=== PATIENT | female | born 1940 | race Caucasian/White ===

== ENCOUNTER → 2016-12-29 | Outpatient (CLI) | payer MEDICARE, MEDICAID ==
[~2016-12-29] MED LIST: ALLEGRA30 MG PO; ATROVENT INH; 114 GM INH; BENICAR20 MG PO; CLEOCIN HCL300 MG PO; DOXYCYCLINE100 M1 PO; FLECAINIDE ACE100 MG PO; GLUCOVANCE 2.51 TAB PO; LANOXIN 0.25M0.25 MG PO; LANOXIN0.25 MG PO; LEVOTHYROXIN0.075 MG PO; LISINOPRIL 10MG10 MG PO; MEDROL 4MG. DOSE4 MG PO; MUCINEX ER600 MG PO; NORCO 325 MG-51 TAB PO; NORCO1 TAB PO; OXYGEN; PREDNISONE 20MG20 MG PO; PRILOSEC20 MG PO; SALMETEROL-F28 PUFF1 INH; VIBRAMYCIN50 MG/5 ML PO; WALK5 XX; XANAX 0.5MG TA0.5 MG PO; ZITHROMAX Z-PA250 M2 PO; [UNRECOGNIZED DRUG - OTHER] PO
[2016-12-29 13:45] LABS: HEMOGLOBIN 12.3 g/dL (12.2-16.2); LYMPH # 1.9 K/mm3 (0.7-4.5); LYMPH % 20.2 % (10-50.0)
[2016-12-29 14:50] LABS: BUN 12 mg/dL (7-18); GFR (ESTIMATED) 40 ML/MIN (59-)
== END ==
LOC: LAB 12:33
PROVIDERS: Internal Medicine
DX: I50.9 Heart failure, unspecified (principal); J44.9 Chronic obstructive pulmonary disease, unspecified; I48.0 Paroxysmal atrial fibrillation; I42.8 Other cardiomyopathies

== ENCOUNTER 2017-03-03 22:24 | Observation (INO) | payer OTHER, MEDICARE, MEDICAID ==
[~2017-03-03] VITALS: Ht 182.9 cm; Wt 112.5 kg
[~2017-03-03 22:24] MED LIST changes: +ALLEGRA ALLERGY60 MG PO; -ALLEGRA30 MG PO; +PRILOSEC20 M1 PO; -PRILOSEC20 MG PO
[2017-03-03 22:28] VITALS: BP 145/104
[2017-03-03] MEDS ORDERED: BISOPROLOL FUMA10 MG PO (22:38)
--- OUTSIDE RECORDS SUMMARY | 2017-03-03 22:44 | External Medical Summary Rpt | CCD ---
Author Author , ANGELINA ALFARO Address Unknown Phone [email or web address] Purpose Continuity of Care Document - 06-23-2016 through 2016 Problems Code Diagnosis DOS Provider Status 244.9 787.21 I48.0 PAROXYSMAL ATRIAL FIBRILLATIO N J44.1 CHRONIC OBSTRUCTIVE PULMONARY DISEASE W (ACUTE) EXACERBATIO N R06.02 SHORTNESS OF BREATH Z79.899 OTHER DETENTION (CURRENT) DRUG THERAPY Medications Na ND Rx Da Fi Fi Am Da Di Ph RX Ph St me C No te ll ll ou ys ag ar # ys at rm s nt no ma ic us Or Da si cy ia de te s n re d KE 17 01 02 5. 25 00 KR Ac TO 47 -1 -1 00 00 OG ti TI 80 2- 0- 0 06 ER ve FE 71 20 20 58 N 71 17 17 71 PH FU 0 87 AR M MA 0. CY 02 5% #[address] BETANCOURT S
--- OUTSIDE RECORDS SUMMARY | 2017-03-03 22:44 | External Medical Summary Rpt | CCD ---
Author Author , ANGELINA ALFARO Address Unknown Phone [email or web address] Purpose Continuity of Care Document - 06-23-2016 through 2016 Problems Code Diagnosis DOS Provider Status 244.9 787.21 I48.0 PAROXYSMAL ATRIAL FIBRILLATIO N J44.1 CHRONIC OBSTRUCTIVE PULMONARY DISEASE W (ACUTE) EXACERBATIO N R06.02 SHORTNESS OF BREATH Z79.899 OTHER HALFWAY (CURRENT) DRUG THERAPY Medications Na ND Rx [...]
--- OUTSIDE RECORDS SUMMARY | 2017-03-03 22:45 | External Medical Summary Rpt | CCD ---
Author Author , ANGELINA ALFARO Address Unknown Phone [email or web address] Purpose Continuity of Care Document - 06-23-2016 through 2016 Medications Na ND Rx Da Fi Fi [...]
--- OUTSIDE RECORDS SUMMARY | 2017-03-03 22:45 | External Medical Summary Rpt | CCD ---
Author Author , ANGELINA ALFARO Address Unknown Phone [email or web address] Purpose Continuity of Care Document - 06-23-2016 [...]
--- OUTSIDE RECORDS SUMMARY | 2017-03-03 22:45 | External Medical Summary Rpt | CCD ---
Demographics Preferred Language German Marital Status Unknown Mandaeism Affiliation Unknown Race Unknown Ethnic Group Unknown Author Author , ANGELINA ALFARO Address Unknown Phone Immunization Unable to retrieve immunization data due to connection failure with Immunization Registry. Please try again later.
--- OUTSIDE RECORDS SUMMARY | 2017-03-03 22:45 | External Medical Summary Rpt | CCD ---
Demographics Preferred Language Greek Marital Status Unknown Restorationist Affiliation Unknown Race Unknown Ethnic Group Unknown Author Author , ANGELINA ALFARO Address Unknown Phone Immunization Unable to retrieve immunization data due to connection failure with Immunization Registry. Please try again later.
--- OUTSIDE RECORDS SUMMARY | 2017-03-03 22:46 | External Medical Summary Rpt ---
Author Author ANGELINA Ahumada, [employer] Organization [employer] Address Unknown Phone Unavailable Results Basic metabolic panel in Blood Observa Value Referen Units Interpr Notes Date tion ce etation Range Urea 7 - 18 mg/dL Normal No Dec 29 nitrogen informati 2016 [Mass/vol on in 12:35 PM ume] in source Serum or data Plasma Calcium 8.5 - mg/dL Normal No Dec 29 [Mass/vol 10.1 informati 2016 ume] in on in 12:35 PM Serum or source Plasma data Chloride 98 - 107 mmoL/L Normal No Dec 29 [Moles/vo informati 2016 lume] in on in 12:35 PM Serum or source Plasma data Carbon 21.0 - mmoL/L Normal No Dec 29 dioxide, 32.0 informati 2017 total on in 12:35 PM [Moles/vo source lume] in data Serum or Plasma Creatinin 0.55 - mg/dL High No Dec 29 e 1.02 informati 2016 [Mass/vol on in 12:35 PM ume] in source Serum or data Plasma Estimated 59- ML/MIN Low REFERENCE Dec 29 RANGE: 2017 glomerula >60 12:35 PM r ML/MIN/1. filtratio 73 SQUARE n rate METERSIf (GF this patient is -A merican, then multiply theresult by 1.210. Glucose 74 - 106 mg/dL High No Dec 29 [Mass/vol informati 2016 ume] in on in 12:35 PM Serum or source Plasma data Potassium 3.5 - 5.1 mmoL/L Normal No Dec 29 informati 2016 [Moles/vo on in 12:35 PM lume] in source Serum or data Plasma Sodium 136 - 145 mmoL/L Normal No Dec 29 [Moles/vo informati 2017 lume] in on in 12:35 PM Serum or source Plasma data Natriutietic peptide B [Mass/volume] in Serum or Plasma Observa Value Referen Units Interpr Notes Date tion ce etation Range Natriutie 0 - 100 pg/mL High No Dec 29 tic 2016 peptide B on in 12:35 PM source [Mass/vol data ume] in Serum or Plasma Thyroxine (T4) free [Mass/volume] in Serum or Plasma Observa Value Referen Units Interpr Notes Date tion ce etation Range Thyroxine 0.76 - ng/dL Normal No Dec 29 (T4) 1.46 2016 free on in 12:35 PM [Mass/vol source ume] in data Serum or Plasma Thyrotropin [Units/volume] in Serum or Plasma Observa Value Referen Units Interpr Notes Date tion ce etation Range Thyrotrop 0.358 - uIU/ml No No Dec 29 in 3.740 informati 2016 [Units/vo on in on in 12:35 PM lume] in source source Serum or data data Plasma CBC W Auto Differential panel in Blood Observa Value Referen Units Interpr Notes Date tion ce etation Range Basophils 0 - 0.2 K/MM3 Normal No Dec 292016 [#/volume on in 12:35 PM ] in source Blood by data Automated count Basophils 0.1 - 2.0 % Normal No Dec 29 /2016 leukocyte on in 12:35 PM s in source Blood by data Automated count Eosinophi 0.0 - 0.4 K/mm3 Normal No Dec 29 ls 2016 [#/volume on in 12:35 PM ] in source Blood by data Automated count Eosinophi 0.1 - % Normal No Dec 29 ls/100 12.0 2016 leukocyte on in 12:35 PM s in source Blood by data Automated count Granulocy 1.8 - 7.8 K/mm3 Normal No Dec 29 so 2016 [#/volume on in 12:35 PM ] in source Blood by data Automated count Granulocy 37.0 - % Normal No Dec 29 so/100 80.0 2016 leukocyte on in 12:35 PM s in source Blood by data Automated count Hematocri 37.0 - % Normal No Dec 29 t [Volume 47.0 2016 on in 12:35 PM Fraction] source of Blood data Hemoglobi 12.2 - g/dL Normal No Dec 29 n 16.2 2016 [Mass/vol on in 12:35 PM ume] in source Blood data Lymphocyt 0.7 - 4.5 K/mm3 Normal No Dec 29 es 2016 [#/volume on in 12:35 PM ] in source Unspecifi data ed specimen by Automated count Lymphocyt 10 - 50.0 % Normal No Dec 29 es 2016 [#/volume on in 12:35 PM ] in source Unspecifi data ed specimen by Automated count Erythrocy 27 - 31.2 pg Normal No Dec 29 te mean 2016 corpuscul on in 12:35 PM ar source hemoglobi data n [Entitic mass] Erythrocy 31.8 - g/dl Normal No Dec 29 te mean 35.4 inform2016 corpuscul on in 12:35 PM ar source hemoglobi data n concentra tion [Mass/vol ume] by Automated count Erythrocy 82.2 - fl Normal No Dec 29 te mean 97.8 inform2016 corpuscul on in 12:35 PM ar volume source [Entitic data volume] by Automated count Monocytes 0.1 - 1.0 K/mm3 Normal No Dec 292016 [#/volume on in 12:35 PM ] in source Blood by data Automated count Monocytes 1.7 - 9.3 % Normal No Dec 18 /100 inform 2017 leukocyte on in 12:35 PM s in source Blood by data Automated count Platelet 7.4 - fl Normal No Dec 29 mean 10.4 inform2016 volume on in 12:35 PM [Entitic source volume] data in Blood by Automated count Platelets 142 - 424 K/mm3 Normal No Dec 292016 [#/volume on in 12:35 PM ] in source Blood data Erythrocy 4.2 - 5.4 M/mm3 Normal No Dec 29 so inform2016 [#/volume on in 12:35 PM ] in source Amniotic data fluid Erythrocy 11.5 - % Normal No Dec 29 te 17.5 inform2016 distribut on in 12:35 PM ion width source [Entitic data volume] by Automated count Leukocyte 4.8 - K/MM3 Normal No Dec 29 s 10.8 2016 [#/volume on in 12:35 PM ] in source Blood data
--- NOTE | 2017-03-03 22:55 | Emergency Room Report ---
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 N Clinical Suspician of Infection? N Mental Status: 1 - Regular (Normal Baseline) Sepsis Risk:Possible Sepsis Risk Have you (or family members/close friends) recently traveled outside the [place]? N If Yes, where/when: Have you had exposure to infectious disease within the past month? N TB? Other? Specify: Source patient, RN notes reviewed, family, old records Exam Limitations no limitations Comment pt with progressive sob and no chest pain or syncope - she has prod cough with yellow sputum and has hx of copd- o2 dep and a fib with pacemaker - pt with progressive sx at home with no relief with home meds - no fever or rash and she has been compliant with meds Cardiac Chest Pain Chest pain indicative of cardiac No Timing/Duration this evening Severity moderate ALLERGIES Coded Allergies: atorvastatin (From Lipitor) (Mild, 09/07/15) cefixime (From Suprax) (Mild, I-RASH 09/07/15) cephalexin (From Keflex) (Mild, DIARRHEA 09/07/15) etodolac (Mild, 09/07/15) pantoprazole (Mild, NIGHTMARES 09/07/15) prednisone (Mild, SHORTNESS OF BREATH 09/07/15) Sulfa (Sulfonamide Antibiotics) (URINARY PROBLEMS 09/07/15) cefepime (09/07/15) diltiazem ("BOTHERED HEART" 09/07/15) isosorbide (09/07/15) morphine (03/03/17) rosuvastatin (UNK RXN 09/07/15) amoxicillin (Mild, DIARRHEA 09/07/15) clarithromycin (Mild, N/V/D 09/07/15) clavulanic acid (Mild, DIARRHEA 09/07/15) esomeprazole (From Nexium) (Mild, NIGHTMARES 09/07/15) gabapentin (Mild, URINARY PROBLEMS, SWELLING 09/07/15) levofloxacin (From Levaquin) (Mild, PAINFUL JOINTS 09/07/15) montelukast (From Singulair) (Mild, 09/07/15) naproxen (Mild, NVD 09/07/15) nitrofurantoin (From Macrobid) (Mild, SHAKES 09/07/15) lansoprazole (From Prevacid) (SHORT OF BREATH 09/07/15) Home Medications Active Scripts Device (Walker, Rolling (2-Wheel)) 1 UNIT XX UD #1 DEV Prov: 07/26/15 Reported Medications Salmeterol 50/Fluticasone 500 (Advair 500-50 Diskus) 1 PUFF INH BID Alprazolam (Xanax 0.5MG) 0.5 MG PO TID PRN NERVES FEXOFENADINE HCL (Tameka Allergy) 60 MG PO BID OMEPRAZOLE MAGNESIUM (Prilosec 20MG) 20 MG PO BID [OXYGEN] 2 PRN Bisoprolol Fumarate 10 MG PO DAILY #90 TAB Rivaroxaban (Xarelto) 15 MG PO DAILY POTASSIUM CHL (Potassium Chloride) 20 MEQ PO DAILY Furosemide (Lasix 40MG) 40 MG PO DAILY IPRATROPIUM/ALBUTEROL SULFATE (Iprat-Albut 0.5-3(2.5) MG/3 Ml) 3 ML IH QID VERAPAMIL HCL (Verapamil ER) 240 MG PO DAILY TRAMADOL HCL (Tramadol) 50 MG PO DAILY History Medical History General CAD? Yes Angina: No [place]: No Hypertension? Yes Hyperlipidemia? Yes CHF? No DVT? No PE? No COPD? Yes Asthma? Yes Anemia? No GERD? No Gastric ulcers? No GI Bleed? No Hernia? Yes Thyroid Problems? No Hypothyroidism? No CVA? No Seizures? No Diabetes? Yes Insulin Dependent: No Insulin Pump: No Home FSBS? No Renal Insuffiency? No End Stage Renal Disease? No UTI? Yes Stones? No BPH? No GB Disease: Yes Nephritic Syndrome? No Asplenia? No Hepatitis? No Sickle Cell Disease? No Arthritis? Yes Migraines? No Cataracts? No Glaucoma? No MRSA? No HIV? No TB? No Anxiety? Yes Depression? No Cancer? No More? No Immunization Hx DT/Tetanus Unknown Flu 2014-FSN Pneumonia Received In Past Surgical Hx Previous Surgery?Y GALLBLADDER TONSILLECTOMY Tubal Ligation GOITER L KNEE Family History Family Hx Diabetes No CAD Yes Hypertension Yes Hyperlipidemia Yes Cancer Yes TB No Social History Smoking Hx Smoker: Former Smoker Tobacco: No Type Cigarettes Packs/day N/A Alcohol Alcohol: No Drugs none Review of Systems All Other Systems Reviewed and Negative Constitutional see HPI, denies fever, weakness Eyes denies drainage, denies photophobia ENT denies: ear pain, epistaxis, throat pain. Respiratory cough, shortness of breath, denies wheezing Cardiovascular denies chest pain, denies syncope Gastrointestinal denies abdominal pain, denies diarrhea, denies vomiting Genitourinary denies: dysuria, frequency, hesitancy. Musculoskeletal denies back pain, denies joint pain, denies joint swelling, denies neck pain Skin denies rash Psychiatric/Neurological denies headache, denies seizure Physical Exam Vital Signs Vital Signs Date Time Temp Pulse Resp B/P Pulse O2 O2 Flow FiO2 Ox Delivery Rate 03/036 82 20 119/75 95 2 03/03 2301 93 03/038 98.4 108 28 145/104 93 2 - WBC >12,000 or <4,000 or 10% bands? 2 or more SIRS Criteria Met? B/P:119/75 MAP:117 Creatinine >2.0? UA output<0.5ml/kg/hr for 2 hrs? Platelet count >100,000? Lactate >2.0mmol/1? INR >1.2 or PTT > than 60 sec? Evidence of Organ Dysfunction? Provider documented clinical suspician of infection? N Sepsis Criteria Count: 2 Sepsis Risk: Possible Sepsis Risk General Appearance no apparent distress Eye Exam - bilateral eye PERRL, bilateral eye EOMI Ear, Nose, Throat normal ENT inspection Neck supple Respiratory Status No: respiratory distress. Lung Sounds bilateral: rhonchi. Cardiovascular regular rate/rhythm, systolic murmur Peripheral Pulses Pulses normal Yes Gastrointestinal soft Extremities normal inspection Strength 4 Upper Ext (L), 4 Upper Ext (R), 4 Lower Ext (L), 4 Lower Ext (R) Neurologic alert, model artists' II-XII nml as tested, no motor/sensory deficits Reflexes Reflexes normal No Mental status normal mood/affect Skin intact Medical Decision Making LABS/Meds/Orders Pt receiving controlled substance in ED? No Results/Orders Laboratory Tests 03/03/17 2300: TSH 1.65, Thyroxine (T4) 10.2 03/03/172299: Lactic Acid 3.2 H, Digoxin < 0.20 L 03/03/172249: WBC 12.8 H, RBC 4.41, Hgb 12.5, Hct 39.2, MCV 88.8, RDW 14.9, Plt Count 239, MPV 8.4, Gran % 75.2, Gran # 9.6 H, Lymphocytes % 19.0, Monocytes % 4.1, Eosinophils % 1.2, Basophils % 0.4, Lymphocytes # 2.4, Monocytes # 0.5, Eosinophils # 0.2, Basophils # 0.1, PUBS MCHC 31.9, MCH 28.3 03/03/172239: Sodium 140, Potassium 3.9, Chloride 104, Carbon Dioxide 24, BUN 14, Creatinine 1.5 H, Estimated Creat Clear 58, Estimated GFR (MDRD) 34 L, Glucose 173 H, Calcium 9.1, Total Bilirubin 0.3, AST 25, ALT 18, Alkaline Phosphatase 107, Creatine Kinase 123, CK-MB (CK-2) Rel Index 2.2, CK and CKMB Interp 2.7, Troponin I < 0.02, B-Natriuretic Peptide 79, Total Protein 7.4, Albumin 3.5, Globulin 3.9 H, Albumin/Globulin Ratio 0.9 L Current Medication Orders Sig/Dalia Start time Last Medication Dose Route Stop Time Status Admin Doxycycline Hyclate 100 MG ONCE ONE 03/03 2345 AC Sodium Chloride 250 ML IV 03/04 113 Methylprednisolone 125 MG ONCE ONE 03/03 2345 DCr Sodium Succinate IV 03/03 2346 Methylprednisolone 0 .STK-MED ONE 03/03 2345 DCr Sodium Succinate .ROUTE Albuterol 0 .STK-MED ONE 03/03 2302 DC INH Albuterol 2.5 MG ONCE ONE 03/03 2300 DC 03/03 INH 03/03 Sodium Chloride 10 ML PRN PRN 03/03 2245 AC IV 03/04 2240 Orders Procedure Date/time Status Decision to admit 03/03 2345 Active RT Aerosol Treatment, Provide 03/03 2322 Active CHEST-PORTABLE 03/03 2258 Active THYROID STIMULATING HORMONE 10/21 2257 Complete THYROXINE (T4) 03/03 2257 Complete DIGOXIN 03/03 2257 Complete RT REQUEST ALBUTEROL NEB 03/03 2256 Active CULTURE, SPUTUM 03/03 2256 Active ELECTROCARDIOGRAM REQUEST 03/03 2241 Active IV SALINE LOCK 03/03 2241 Active OXYGEN PER NURSE 03/03 2241 Active CULTURE, BLOOD 03/03 2241 Active LACTIC ACID 03/03 2241 Complete CBC WITH AUTO DIFF 03/03 2241 Complete CARDIAC ENZYMES 03/03 2241 Complete CHEM 12 PROFILE 03/03 2241 Complete BRAIN NATRIURETIC PEPTIDE 03/03 2241 Complete 12 LEAD EKG-BRIT (INITIAL) 03/03 UNK Active CM/EKG CM/arranging funeral director Rhythm Atrial Fibrillation EKG compared w/(date of old), non-spec. ST/Twave chgs XRAY/CT/US XRAY/CT/US XRAY chest XR interpretation by reviewed by me Xray Results abnormal (chronic changes) Departure Departure Time of Disposition 234 Disposition Still a Patient Clinical Impression Primary Impression: COPD (chronic obstructive pulmonary disease) Qualifiers: COPD type: COPD with acute exacerbation Qualified Code: J44.1 - Chronic obstructive pulmonary disease with (acute) exacerbation Secondary Impressions: A-fib Qualifiers: Atrial fibrillation type: chronic Qualified Code: I48.2 - Chronic atrial fibrillation Bronchitis Pacemaker Condition STABLE Referrals Kodi APODACA,A.C. (Family) ED Critical Care Critical Care No at 0016
[2017-03-03] MEDS ORDERED: XARELTO15 MG PO (23:00)
[2017-03-03 23:01] LABS: HEMOGLOBIN 12.5 g/dL (12.2-16.2); LYMPH # 2.4 K/mm3 (0.7-4.5)
[2017-03-03] MEDS ORDERED: POTASSIUM CHLO20 ME2 PO (23:01)
[2017-03-03] MEDS ORDERED: LASIX 40MG. TAB40 MG PO (23:01)
[2017-03-03] MEDS ORDERED: IPRATROPIUM BROM3 ML IH (23:02)
[2017-03-03] MEDS ORDERED: VERAPAMIL SR 2240 MG PO (23:03)
[2017-03-03] MEDS ORDERED: TRAMADOL50 M1 PO (23:05)
[2017-03-03 23:28] LABS: BUN 14 mg/dL (7-18); GFR (ESTIMATED) 34 ML/MIN (59-)
--- OUTSIDE RECORDS SUMMARY | 2017-03-03 23:51 | External Medical Summary Rpt | CCD ---
Author Author , ANGELINA ALFARO Address Unknown Phone [email or web address] Purpose Continuity of Care Document - 06-23-2016 [...] #[address] BETANCOURT S Results Labs Lab Lab Date Result Refere Interp Status Commen Order Detail nces retati t Range on Blood lactic acid measurement (moles/vol (03-03-2017 23:00) Blood 2 = 3.2 0.4-2.0 complet lactic 017 mmol/L ed acid 23:00 measure ment (moles/ vol Comment: An elevated Lactic Acid is suggestive of sepsis and should Comment: be repeated within 6 hours of initial testing. Digoxin level (03-03-2017 23:00) Digoxin 2 < 0.20 1.15-2. complet level 017 ng/mL 56 ed 23:00 Thyroxine (03-03-2017 23:00) Thyroxi 03-03-2 = 10.2 4.7-13. complet ne 017 ug/dl 3 ed 23:00 Serum or plasma thyroid stimulating horm (03-03-2017 23:00) Serum 03-03-2 = 1.65 0.358-3 complet or 017 uIU/ml .740 ed plasma 23:00 thyroid stimula ting horm CBC w auto diff (03-03-2017 22:50) Baso % 03-03-2 = 0.4 % 0.1-2.0 complet 017 ed 22:50 Automat 03-03-2 = 0.2 0.0-0.4 complet ed 017 K/mm3 ed blood 22:50 eosinop hil count Automat = 1.2 % 0.1-12. complet ed 017 0 ed blood 22:50 eosinop hils/10 0 leukocy t Blood = 9.6 1.8-7.8 complet granulo 017 K/mm3 ed cytes 22:50 automat ed count (numb Granulo = 75.2 37.0-80 complet cyte 017 % .0 ed percent 22:50 age Blood = 39.2 37.0-47 complet hematoc 017 % .0 ed rit 22:50 (volume fractio n) Blood = 12.5 12.2-16 complet hemoglo 017 g/dL .2 ed bin 22:50 measure ment (mass/v olum Absolut = 2.4 0.7-4.5 complet e 017 K/mm3 ed lymphoc 22:50 yte count Lymphoc = 19.0 10-50.0 complet yte 017 % ed count, 22:50 blood, automat ed Mean = 28.3 27-31.2 complet corpusc 017 pg ed ular 22:50 hemoglo bin (MCH) determ Automat = 31.9 31.8-35 complet ed 017 g/dl .4 ed erythro 22:50 cyte mean corpusc ular h Automat = 88.8 82.2-97 complet ed 017 fl .8 ed erythro 22:50 cyte mean corpusc ular v Absolut = 0.5 0.1-1.0 complet e 017 K/mm3 ed monocyt 22:50 e count [place] % = 4.1 % 1.7-9.3 complet 017 ed 22:50 Automat = 8.4 7.4-10. complet ed 017 fl 4 ed blood 22:50 platele t mean volume christel Blood = 239 142-424 complet platele 017 K/mm3 ed t count 22:50 Red = 4.41 4.2-5.4 complet blood 017 M/mm3 ed cell 22:50 count Automat = 14.9 11.5-17 complet ed 017 % .5 ed erythro 22:50 cyte distrib ution width Blood = 12.8 4.8-10. complet leukocy 017 K/MM3 8 ed so 22:50 count (number /volume ) Automat = 0.1 0-0.2 complet ed 017 K/MM3 ed blood 22:50 basophi l count (count/ vo Brain natriuretic peptide (03-03-2017 22:40) Brain = 79 0-100 complet natriur 017 pg/mL ed etic 22:40 peptide Cardiac enzymes (03-03-2017 22:40) Serum = 2.2 0-4.0 complet or 017 U/L ed plasma 22:40 creatin e kinase MB (CK-M Serum = 2.7 0.0-3.6 complet or 017 ng/mL ed plasma 22:40 creatin e kinase MB measu Serum = 123 26-192 complet or 017 U/L ed plasma 22:40 creatin e kinase measure m Serum < 0.02 0.00-0. complet or 017 ng/mL 06 ed plasma 22:40 troponi n i.cardi ac measu Comprehensive metabolic panel (03-03-2017 22:40) Serum = 0.9 1.1-1.8 complet or 017 ed plasma 22:40 albumin /globul in mass ra Serum = 3.5 3.4-5.0 complet or 017 gm/dL ed plasma 22:40 albumin measure ment (mas Serum = 107 46-116 complet or 017 U/L ed plasma 22:40 alkalin e phospha tase christel Serum = 0.3 0.2-1.0 complet or 017 mg/dL ed plasma 22:40 total bilirub in measure m Serum = 14 7-18 complet or 017 mg/dL ed plasma 22:40 urea nitroge n measure men Serum = 9.1 8.5-10. complet or 017 mg/dL 1 ed plasma 22:40 calcium measure ment (mas Serum = 104 98-107 complet or 017 mmoL/L ed plasma 22:40 chlorid e measure ment (mo Carbon = 24 21.0-32 complet dioxide 017 mmoL/L .0 ed 22:40 measure ment Serum = 1.5 0.55-1. complet or 017 mg/dL 02 ed plasma 22:40 creatin ine measure ment ( Estimat = 58 50-200 complet ion of 017 ML/MIN ed creatin 22:40 ine renal clearan ce Estimat = 34 59- complet ed 017 ML/MIN ed glomeru 22:40 lar filtrat ion rate (GF Comment: REFERENCE RANGE: >60 ML/MIN/1.73 SQUARE METERS Comment: If this patient is -Thai, then multiply the Comment: result by 1.210. Serum = 3.9 1.3-3.2 complet globuli 017 gm/dL ed n 22:40 measure ment (mass/v olume) Serum = 173 74-106 complet or 017 mg/dL ed plasma 22:40 glucose measure ment (mas Serum = 3.9 3.5-5.1 complet potassi 017 mmoL/L ed um 22:40 measure ment Serum = 140 136-145 complet sodium 017 mmoL/L ed measure 22:40 ment Serum = 25 15-37 complet or 017 U/L ed plasma 22:40 asparta te aminotr ansfera ALT = 18 12-78 complet (SGPT) 017 U/L ed ser/yair 22:40 s Protein = 7.4 6.4-8.2 complet total 017 gm/dL ed ser/yair 22:40 s
--- OUTSIDE RECORDS SUMMARY | 2017-03-03 23:51 | External Medical Summary Rpt | CCD ---
Author Author , ANGELINA ALFARO Address Unknown Phone [email or web address] Purpose Continuity of Care Document - 06-23-2016 [...] 017 K/mm3 ed monocyt 22:50 e count [place] % = 4.1 % 1.7-9.3 complet 017 [...] SQUARE METERS Comment: If this patient is -Norwegian, then multiply the Comment: result by 1.210. [...]
--- OUTSIDE RECORDS SUMMARY | 2017-03-03 23:51 | External Medical Summary Rpt | CCD ---
Author Author [employer] Organization [employer] Address Unknown Phone Unavailable Purpose Continuity of Care Document - through 2016
--- OUTSIDE RECORDS SUMMARY | 2017-03-03 23:52 | External Medical Summary Rpt ---
Author Author ANGELINA Ahumada, ANNABELLABRITTANIE [employer] Organization [employer] Address Unknown Phone Unavailable Results Lactate [Moles/volume] in Blood Observa Value Referen Units Interpr Notes Date tion ce etation Range Lactate 0.4 - 2.0 mmol/L High An Mar 03 [Moles/vo elevated 2017 lume] in Lactic 11:00 PM Blood Acid is suggestiv e of sepsis and shouldbe repeated within 6 hours of initial testing. CBC W Auto Differential panel in Blood Observa Value Referen Units Interpr Notes Date tion ce etation Range Basophils 0 - 0.2 K/MM3 Normal No Mar 03 inform2016 [#/volume on in 10:50 PM ] in source Blood by data Automated count Basophils 0.1 - 2.0 % Normal No Mar 03 / inform2016 leukocyte on in 10:50 PM s in source Blood by data Automated count Eosinophi 0.0 - 0.4 K/mm3 Normal No Mar 03 ls inform2016 [#/volume on in 10:50 PM ] in source Blood by data Automated count Eosinophi 0.1 - % Normal No Mar 03 ls/100 12.0 inform2016 leukocyte on in 10:50 PM s in source Blood by data Automated count Granulocy 1.8 - 7.8 K/mm3 High No Mar 03 so 2016 [#/volume on in 10:50 PM ] in source Blood by data Automated count Granulocy 37.0 - % Normal No Mar 03 so/100 80.0 2016 leukocyte on in 10:50 PM s in source Blood by data Automated count Hematocri 37.0 - % Normal No Mar 03 t [Volume 47.0 ati 2016 on in 10:50 PM Fraction] source of Blood data Hemoglobi 12.2 - g/dL Normal No Mar 03 n 16.2 informati 2016 [Mass/vol on in 10:50 PM ume] in source Blood data Lymphocyt 0.7 - 4.5 K/mm3 Normal No Mar 03 es 2016 [#/volume on in 10:50 PM ] in source Unspecifi data ed specimen by Automated count Lymphocyt 10 - 50.0 % Normal No Mar 03 es inform2016 [#/volume on in 10:50 PM ] in source Unspecifi data ed specimen by Automated count Erythrocy 27 - 31.2 pg Normal No Mar 03 te mean 2016 corpuscul on in 10:50 PM ar source hemoglobi data n [Entitic mass] Erythrocy 31.8 - g/dl Normal No Mar 03 te mean 35.4 2016 corpuscul on in 10:50 PM ar source hemoglobi data n concentra tion [Mass/vol ume] by Automated count Erythrocy 82.2 - fl Normal No Mar 03 te mean 97.8 2016 corpuscul on in 10:50 PM ar volume source [Entitic data volume] by Automated count Monocytes 0.1 - 1.0 K/mm3 Normal No Mar 032016 [#/volume on in 10:50 PM ] in source Blood by data Automated count Monocytes 1.7 - 9.3 % Normal No Mar 03 /100 2016 leukocyte on in 10:50 PM s in source Blood by data Automated count Platelet 7.4 - fl Normal No Mar 03 mean 10.4 2016 volume on in 10:50 PM [Entitic source volume] data in Blood by Automated count Platelets 142 - 424 K/mm3 Normal No Mar 032016 [#/volume on in 10:50 PM ] in source Blood data Erythrocy 4.2 - 5.4 M/mm3 Normal No Mar 03 so 2016 [#/volume on in 10:50 PM ] in source Amniotic data fluid Erythrocy 11.5 - % Normal No Mar 03 te 17.5 2016 distribut on in 10:50 PM ion width source [Entitic data volume] by Automated count Leukocyte 4.8 - K/MM3 High No Mar 03 s 10.8 2016 [#/volume on in 10:50 PM ] in source Blood data Basic metabolic panel in Blood Observa Value Referen Units Interpr Notes Date tion ce etation Range Urea 7 - 18 mg/dL Normal No Dec 29 nitrogen 2016 [Mass/vol on in 12:35 PM ume] in source Serum or data Plasma Calcium 8.5 - mg/dL Normal No Dec 29 [Mass/vol 10.1 informati 2017 ume] in on in 12:35 PM Serum [...] mg/dL High No Dec 29 e 1.02 inform2016 [Mass/vol on in 12:35 PM ume] in [...] 3.5 - 5.1 mmoL/L Normal No Dec 292016 [Moles/vo on in 12:35 PM lume] in [...] 100 pg/mL High No Dec 29 tic 2017 peptide B on in 12:35 PM source [Mass/vol data ume] in Serum or Plasma Thyroxine (T4) free [Mass/volume] in Serum or Plasma Observa Value Referen Units Interpr Notes Date tion ce etation Range Thyroxine 0.76 - ng/dL Normal No Dec 29 (T4) 1.46 informati 2016 free on in 12:35 PM [Mass/vol source ume] in data Serum or Plasma Thyrotropin [Units/volume] in Serum or Plasma Observa Value Referen Units Interpr Notes Date tion ce etation Range Thyrotrop 0.358 - uIU/ml No No Dec 29 in 3.740 informati informati 2016 [Units/vo on in on in 12:35 PM lume] in source source Serum or data data Plasma CBC W Auto Differential panel in Blood Observa Value Referen Units Interpr Notes Date tion ce etation Range Basophils 0 - 0.2 K/MM3 Normal No Dec 18 inform2016 [#/volume on in 12:35 PM ] in source Blood by data Automated count Basophils 0.1 - 2.0 % Normal No Dec 18 /100 informati 2016 leukocyte on in 12:35 PM s in source Blood by data Automated count Eosinophi 0.0 - 0.4 K/mm3 Normal No Dec 29 ls ati 2016 [#/volume on in 12:35 PM ] in source Blood by data Automated count Eosinophi 0.1 - % Normal No Dec 29 ls/100 12.0 informati 2016 leukocyte on in 12:35 PM s in source Blood by data Automated count Granulocy 1.8 - 7.8 K/mm3 Normal No Dec 29 so inform2016 [#/volume on in 12:35 PM ] in source Blood by data Automated count Granulocy 37.0 - % Normal No Dec 29 so/100 80.0 inform2016 leukocyte on in 12:35 PM s in source Blood by data Automated count Hematocri 37.0 - % Normal No Dec 29 t [Volume 47.0 ati 2016 on in 12:35 PM Fraction] source of Blood data Hemoglobi 12.2 - g/dL Normal No Dec 29 n 16.2 inform2016 [Mass/vol on in 12:35 PM ume] in [...] pg Normal No Dec 29 te mean informati 2016 corpuscul on in 12:35 PM ar source hemoglobi data n [Entitic mass] Erythrocy 31.8 - g/dl Normal No Dec 29 te mean 35.4 informati 2016 corpuscul on in 12:35 PM ar source hemoglobi data n concentra tion [Mass/vol ume] by Automated count Erythrocy 82.2 - fl Normal No Dec 29 te mean 97.8 informati 2017 corpuscul on in 12:35 PM ar volume source [Entitic data volume] by Automated count Monocytes 0.1 - 1.0 K/mm3 Normal No Dec 292016 [#/volume on in 12:35 PM ] in source Blood by data Automated count Monocytes 1.7 - 9.3 % Normal No Dec 29 /100 2016 leukocyte on in 12:35 PM s in source Blood by data Automated count Platelet 7.4 - fl Normal No Dec 29 mean 10.4 2016 volume on in 12:35 PM [Entitic source volume] data in Blood by Automated count Platelets 142 - 424 K/mm3 Normal No Dec 292016 [#/volume on in 12:35 PM ] in source Blood data Erythrocy 4.2 - 5.4 M/mm3 Normal No Dec 29 so 2016 [#/volume on in 12:35 PM ] in source Amniotic data fluid Erythrocy 11.5 - % Normal No Dec 29 te 17.5 2016 distribut on in 12:35 PM ion width source [Entitic data volume] by Automated count Leukocyte 4.8 - K/MM3 Normal No Dec 29 s 10.8 2016 [#/volume on in 12:35 PM ] in source Blood data
--- OUTSIDE RECORDS SUMMARY | 2017-03-03 23:52 | External Medical Summary Rpt | CCD ---
Demographics Preferred Language Syriac Marital Status Unknown Jain Affiliation Unknown Race Unknown Ethnic Group Unknown Author Author , ANGELINA ALFARO Address Unknown Phone Immunization Unable to retrieve immunization data due to connection failure with Immunization Registry. Please try again later.
--- OUTSIDE RECORDS SUMMARY | 2017-03-03 23:52 | External Medical Summary Rpt | CCD ---
Demographics Preferred Language Nepali Marital Status Unknown Roman Catholic Affiliation Unknown Race Unknown Ethnic Group Unknown Author Author , ANGELINA ALFARO Address Unknown Phone Immunization Unable to retrieve immunization data due to connection failure with Immunization Registry. Please try again later.
[2017-03-04] VITALS (7 sets, daily range): BP systolic 119–139; BP diastolic 56–77
--- NOTE | 2017-03-04 00:39 | RADIOLOGY REPORT PS360 ---
CHEST-PORTABLE HISTORY: SOAdyspnea Patient Age: 76 years: Female Ordering Physician: Ludmila Patel MD TECHNIQUE: AP digital portable upright chest 11:11 PM COMPARISON :05/28/2015 2 view chest August 2015 CXR. FINDINGS COPD. Emphysematous changes and hyperexpansion most evident at the upper lung magana. Fibrotic changes and coarsening markings at the lung bases bilaterally again seen and similar to previous study from August 2015. I favor this reflects mainly chronic changes most evident at right base. The upper lung magana appear clear and stable. Pacemaker is now evident overlying the left chest with atrial and ventricular leads in place. Heart upper normal in size. The Olga and mediastinal structures appear stable and unchanged. surveillance monitor leads are in place. IMPRESSION: --------- Stable COPD . Nothing definitely acute Prominent Emphysematous changes with prominent fibrotic changes at bases right greater than left similar to August 2015. Pacemaker now evident. Heart upper normal size.
--- NOTE | 2017-03-04 00:39 | RADIOLOGY REPORT PS360 ---
CHEST-PORTABLE HISTORY: SOAdyspnea Patient Age: 76 years: Female Ordering Physician: Ludmila Patel MD TECHNIQUE: AP digital portable upright chest 11:11 PM COMPARISON :05/28/2015 2 view chest August 2015 CXR. FINDINGS COPD. Emphysematous changes and hyperexpansion most evident at the upper lung magana. Fibrotic changes and coarsening markings at the lung bases bilaterally again seen and similar to previous study from August 2015. I favor this reflects mainly chronic changes most evident at right base. The upper lung magana appear clear and stable. Pacemaker is now evident overlying the left chest with atrial and ventricular leads in place. Heart upper normal in size. The Olga and mediastinal structures appear stable and unchanged. area captain leads are in place. IMPRESSION: --------- Stable COPD . Nothing definitely acute Prominent Emphysematous changes with prominent fibrotic changes at bases right greater than left similar to August 2015. Pacemaker now evident. Heart upper normal size.
[2017-03-04 06:55] LABS: HEMOGLOBIN 11.5 g/dL (12.2-16.2); LYMPH # 0.8 K/mm3 (0.7-4.5); LYMPH % 8.3 % (10-50.0)
[2017-03-04 07:14] LABS: BUN 13 mg/dL (7-18)
[2017-03-04 07:16] LABS: GFR (ESTIMATED) 48 ML/MIN (59-)
[2017-03-04 07:19] LABS: NEUTROPHILS 75 % (42-76)
--- NOTE | 2017-03-04 10:43 | PHARMACY CLINIC NOTE ---
Patient Demographics Patient Demographics Admission date: 03/04/17 Date: 03/04/17 Time: 1043 Allergies Coded Allergies: atorvastatin (From Lipitor) (Mild, 09/07/15) cefixime (From Suprax) (Mild, I-RASH 09/07/15) cephalexin (From Keflex) (Mild, DIARRHEA 09/07/15) etodolac (Mild, 09/07/15) pantoprazole (Mild, NIGHTMARES 09/07/15) prednisone (Mild, SHORTNESS OF BREATH 09/07/15) Sulfa (Sulfonamide Antibiotics) (URINARY PROBLEMS 09/07/15) cefepime (09/07/15) diltiazem ("BOTHERED HEART" 09/07/15) isosorbide (09/07/15) morphine (03/03/17) rosuvastatin (UNK RXN 09/07/15) amoxicillin (Mild, DIARRHEA 09/07/15) clarithromycin (Mild, N/V/D 09/07/15) clavulanic acid (Mild, DIARRHEA 09/07/15) esomeprazole (From Nexium) (Mild, NIGHTMARES 09/07/15) gabapentin (Mild, URINARY PROBLEMS, SWELLING 09/07/15) levofloxacin (From Levaquin) (Mild, PAINFUL JOINTS 09/07/15) montelukast (From Singulair) (Mild, 09/07/15) naproxen (Mild, NVD 09/07/15) nitrofurantoin (From Macrobid) (Mild, SHAKES 09/07/15) lansoprazole (From Prevacid) (SHORT OF BREATH 09/07/15) HEIGHT- FT: 6 IN: 0.00 K.549 VTE General Information Labs: Laboratory Tests 03/04 03/03 0625 2250 Hematology Hgb (12.2 - 16.2 g/dL) 11.5 L 12.5 Hct (37.0 - 47.0 %) 36.4 L 39.2 Plt Count (142 - 424 K/mm3) 217 239 Disclaimer The following section includes nursing documentation that has been pulled in for pharmacy review. Patient's VTE score: 4 Patient's VTE Risk: LOW RISK Clinical trial participant? No VTE prophylaxis NQF [id number] VTE prophylaxis ordered? Yes Type of prophylaxis/treatment: MARKUS (AND XARELTO) at 104
--- NOTE | 2017-03-04 17:38 | HISTORY AND PHYSICAL REPORT ---
Demographics: Admit date: 03/04/17 Chief complaint: shortness of breath, cough PRIMARY DIAGNOSIS: COPD Allergies: Coded Allergies: atorvastatin (From Lipitor) (Mild, 09/07/15) cefixime (From Suprax) (Mild, I-RASH 09/07/15) cephalexin (From Keflex) (Mild, DIARRHEA 09/07/15) etodolac (Mild, 09/07/15) pantoprazole (Mild, NIGHTMARES 09/07/15) prednisone (Mild, SHORTNESS OF BREATH 09/07/15) Sulfa (Sulfonamide Antibiotics) (URINARY PROBLEMS 09/07/15) cefepime (09/07/15) diltiazem ("BOTHERED HEART" 09/07/15) isosorbide (09/07/15) morphine (03/03/17) rosuvastatin (UNK RXN 09/07/15) amoxicillin (Mild, DIARRHEA 09/07/15) clarithromycin (Mild, N/V/D 09/07/15) clavulanic acid (Mild, DIARRHEA 09/07/15) esomeprazole (From Nexium) (Mild, NIGHTMARES 09/07/15) gabapentin (Mild, URINARY PROBLEMS, SWELLING 09/07/15) levofloxacin (From Levaquin) (Mild, PAINFUL JOINTS 09/07/15) montelukast (From Singulair) (Mild, 09/07/15) naproxen (Mild, NVD 09/07/15) nitrofurantoin (From Macrobid) (Mild, SHAKES 09/07/15) lansoprazole (From Prevacid) (SHORT OF BREATH 09/07/15) History of present illness: History of present illness: 76 yr old female with end-stage asthma/COPD and heart disease, followed by Hospice at home, presented to the ED with complaints of increasing shortness of breath, cough and difficulty expectorating sputum. She was found to have elevated WBC and was admitted for management. Past medical history: Family HX Diabetes No CAD Yes Hypertension Yes Hyperlipidemia Yes Cancer Yes TB No Immunization HX DT/Tetanus Unknown Flu 2014-FSN Pneumonia Received In Past TB Test in last year No General CAD? Yes Angina: No PR: No Hypertension? Yes Hyperlipidemia? Yes CHF? No DVT? No PE? No COPD? Yes Asthma? Yes Anemia? No GERD? No Gastric ulcers? No GI Bleed? No Hernia? Yes Thyroid Problems? No Hypothyroidism? No CVA? No Seizures? No Diabetes? Yes Insulin Dependent: No Insulin Pump: No Home FSBS? No Renal Insuffiency? No UTI? Yes Stones? No BPH? No GB Disease: Yes Nephritic Syndrome? No Asplenia? No Hepatitis? No Sickle Cell Disease? No Arthritis? Yes Migraines? No Cataracts? No Glaucoma? No MRSA? No HIV? No TB? No Anxiety? Yes Depression? No Cancer? No More? No Past Surgical HX Previous Surgery?Y GALLBLADDER TONSILLECTOMY Tubal Ligation GOITER L KNEE Current home meds: Active Scripts Device (Walker, Rolling (2-Wheel)) 1 UNIT XX UD #1 DEV Prov: 07/26/15 Reported Medications FEXOFENADINE HCL (Tameka Allergy) 30 MG PO BID Salmeterol 50/Fluticasone 500 (Advair 500-50 Diskus) 1 PUFF INH BID Bisoprolol Fumarate 10 MG PO DAILY #90 TAB Alprazolam (Xanax 0.5MG) 0.5 MG PO TID PRN NERVES OMEPRAZOLE MAGNESIUM (Prilosec 20MG) 20 MG PO BID [OXYGEN] 2 PRN Rivaroxaban (Xarelto) 15 MG PO DAILY POTASSIUM CHL (Potassium Chloride) 20 MEQ PO DAILY Furosemide (Lasix 40MG) 40 MG PO DAILY IPRATROPIUM/ALBUTEROL SULFATE (Iprat-Albut 0.5-3(2.5) MG/3 Ml) 3 ML IH QID VERAPAMIL HCL (Verapamil ER) 240 MG PO DAILY TRAMADOL HCL (Tramadol) 50 MG PO DAILY Social Hx: Smoking HX Tobacco No Type Cigarettes Packs/day 1 1/2 - 2 PACKS Alcohol Alcohol: No Hx of Drug Use Drug Use? No Patien't marital status is Patient's support system is good Comment: Lives at home with support from daughter Review of systems: Constitutional malaise, weakness. Eyes No: no symptoms reported. Ears, Nose, Mouth, Throat nose congestion Respiratory see HPI. Cardiovascular edema Gastrointestinal/Abdominal No no symptoms reported Genitourinary No: no symptoms reported. Musculoskeletal back pain, joint pain. Skin No: no symptoms reported. Neurological Yes: weakness. Psychiatric Yes: anxious (on xanax PRN). Exam: Lab data for last 24 hours: Laboratory Tests 03/04/17 0625: Sodium 142, Potassium 4.1, Chloride 107, Carbon Dioxide 26, BUN 13, Creatinine 1.1 H, Estimated Creat Clear 76, Estimated GFR (MDRD) 48 L, Glucose 161 H, Calcium 9.3, Troponin I < 0.02, WBC 9.6, RBC 4.09 L, Hgb 11.5 L, Hct 36.4 L, MCV 89.1, RDW 14.7, Plt Count 217, MPV 8.4, Gran % 88.9 H, Gran # 8.5 H, Total Counted 100, Lymphocytes % 8.3 L, Monocytes % 2.4, Eosinophils % 0.2, Basophils % 0.3, Neutrophils 75, Band Neutrophils 13 H, Lymphocytes (Manual) 11, Lymphocytes # 0.8, Monocytes (Manual) 1 L, Monocytes # 0.2, Eosinophils # 0.0, Basophils # 0.0, Platelet Estimate NORMAL, Hypochromasia 1+, Rouleaux SL., PUBS MCHC 31.6 L, MCH 28.2 03/04/17 0315: Lactic Acid 1.2 03/03/17 2300: TSH 1.65, Thyroxine (T4) 10.2 03/03/17 2300: Lactic Acid 3.2 H, Digoxin < 0.20 L 03/03/17 2250: WBC 12.8 H, RBC 4.41, Hgb 12.5, Hct 39.2, MCV 88.8, RDW 14.9, Plt Count 239, MPV 8.4, Gran % 75.2, Gran # 9.6 H, Lymphocytes % 19.0, Monocytes % 4.1, Eosinophils % 1.2, Basophils % 0.4, Lymphocytes # 2.4, Monocytes # 0.5, Eosinophils # 0.2, Basophils # 0.1, PUBS MCHC 31.9, MCH 28.3 03/03/17 2240: Sodium 140, Potassium 3.9, Chloride 104, Carbon Dioxide 24, BUN 14, Creatinine 1.5 H, Estimated Creat Clear 58, Estimated GFR (MDRD) 34 L, Glucose 173 H, Calcium 9.1, Total Bilirubin 0.3, AST 25, ALT 18, Alkaline Phosphatase 107, Creatine Kinase 123, CK-MB (CK-2) Rel Index 2.2, CK and CKMB Interp 2.7, Troponin I < 0.02, B-Natriuretic Peptide 79, Total Protein 7.4, Albumin 3.5, Globulin 3.9 H, Albumin/Globulin Ratio 0.9 L Microbiology 03/04 25 SPUTUM: Sputum Culture - RES 03/04 25 SPUTUM: Gram Stain - RES 03/03 2250 BLOOD: Anaerobic Blood Culture - RECD 03/03 2250 BLOOD: Aerobic Blood Culture - RECD 03/03 2250 BLOOD: Anaerobic Blood Culture - RECD 03/03 2250 BLOOD: Aerobic Blood Culture - RECD Admission vital signs: 1ST Vital Signs Result Date Time Pulse Ox 93 03/03 2228 B/P 145/104 03/03 2228 O2 Flow Rate 2 03/03 2228 Temp 98.4 03/03 2228 Pulse 108 03/03 2228 Resp 28 03/03 2228 O2 Delivery OXYGEN 03/04 115 Additional information: pleasant female, resting in bed in NAD. Mild conversational dyspnea but no evidence of dyspnea at rest. Heart rhythm is regular, lungs diminished with rhonchi. Abdomen soft, NT/ND, BS present. Trace lower extremity pitting edema. Oriented x 3. Plan: Problem List 1. COPD with acute exacerbation Assessment/Plan Continue IV doxycycline given her multiple medication intolerances, IV steroids and albuterol. Blood and sputum cultures pending. She is a DNR 2. Paroxysmal atrial fibrillation Assessment/Plan Continue home medications Plan: see above at 1738
[2017-03-05 05:15] VITALS: BP 91/48
[2017-03-05 06:56] LABS: LYMPH % 7.4 % (10-50.0)
[2017-03-05 07:04] LABS: HEMOGLOBIN 10.4 g/dL (12.2-16.2)
[2017-03-05 08:00] VITALS: BP 114/57
--- NOTE | 2017-03-05 08:25 | ACUTE CARE PROGRESS NOTE (QUA) ---
Progress Notes Subjective Date 03/05/17 Time 0823 Note Patient feels a little better, notes that when she gets up she has an exacerbation of what she calls her atrial fibrillation, this seems to be more of a supraventricular tachycardia/MHT response to her lung disease on monitoring. Patient is alert, pleasant, has eaten her breakfast well. Her lungs have loose rhonchi but good air movement. Minimal wheezing. Heart rate regular with multiple ectopic beats. No edema. Objective Findings Last VS-Temp:97.7 B/P:91/48 Pulse:72 Resp:18 SaO2:93 OXYGEN Last weight lbs:248 oz:2 K.549 Method:Bed Scales Assessment/Plan Problem List 1. COPD with acute exacerbation 2. Paroxysmal atrial fibrillation Patient condition Improving Plan: continue current care, continue doxycycline. Change albuterol to Xopenex to see if this would help the fluttering sensation/tachycardia. This inpt stay is expected to cross 2 MNs from start of care Yes at 0852
[2017-03-05 15:57] VITALS: BP 104/50
[2017-03-05 19:50] VITALS: BP 107/56
[2017-03-06 04:26] VITALS: BP 107/54
[2017-03-06 07:40] VITALS: BP 123/58
[2017-03-06 08:50] VITALS: BP 123/58
--- NOTE | 2017-03-06 09:04 | ACUTE CARE PROGRESS NOTE (QUA) ---
Progress Notes Subjective Date 03/06/17 Time 0745 Note Patient states "I feel better today." Continues to have a mildly productive cough. Alert and oriented 3. Rate and rhythm regular. 1+ bilateral lower extremity edema RIGHT greater than LEFT. Pulses 2+ bilaterally. Scattered rhonchi throughout all lung magana. Abdomen soft and nontender Patient/family reports: feeling better Nursing reports: no complaints Objective Findings Last VS-Temp:99.0 B/P:123/58 Pulse:87 Resp:20 SaO2:96 OXYGEN Last weight lbs:248 oz:2 K.549 Method:Bed Scales Reviewed: medications, vital signs, lab results, radiology report Assessment/Plan Problem List 1. COPD with acute exacerbation 2. Paroxysmal atrial fibrillation Patient condition Improving Plan: initiate discharge plan This inpt stay is expected to cross 2 MNs from start of care Yes Comments: Discharge home with Hospice. Continue doxycycline and prednisone at 0904
--- NOTE | 2017-03-06 09:14 | DISCHARGE SUMMARY STANDARD ---
See Addendum Demographics Admit date: 03/04/17 Discharge date: 03/06/17 History of present illness History of present illness 76 yr old female with end-stage asthma/COPD and heart disease, followed by Hospice at home, presented to the ED with complaints of increasing shortness of breath, cough and difficulty expectorating sputum. She was found to have elevated WBC and was admitted for management. Hospital Course Hospital Course: Patient was admitted to acute care. CXR was obtained which showed severe emphysema with no definite pathology. She was given IV doxycycline and steroids. Patient was noted to have some tachycardia with ambulation which is a chronic issue for her. Nebulizer treatments were changed from albuterol to xopenex. She has had some improvement of shortness of breath. She feels better this morning and requests discharge back to Hospice Care. Discharge to Hospice on doxycycline and prednisone. FU with myself in one week. Discharge diagnoses Problem List 1. COPD with acute exacerbation 2. Paroxysmal atrial fibrillation Medications Medications: Discharge meds are as noted. Follow up Follow up in office in: 7 DAYS with: ALBINO BOYD APRN at 0917
[2017-03-06] MEDS ORDERED: DOXYCYCLINE100 M7 PO (09:21)
[2017-03-06 14:47] VITALS: BP 123/58
== END 2017-03-06 15:15 | disposition hospice, home (50) ==
LOC: ER 22:24 → 2ND 23:47 → ER 23:47 → 2ND 03-04 00:38
PROVIDERS: Emergency Medicine
DX: J44.1 Chronic obstructive pulmonary disease with (acute) exacerbation (principal); I10 Essential (primary) hypertension; E11.9 Type 2 diabetes mellitus without complications; Z72.0 Tobacco use; I48.0 Paroxysmal atrial fibrillation; Z79.01 Long term (current) use of anticoagulants
CPT/HCPCS: G0378; J2405